=== PATIENT | female | born 1965 | race Two or more races ===

== ENCOUNTER 2020-05-14 12:52 | Outpatient (REF) | payer OTHER, SELFPAY ==
--- NOTE | ~2020-05-14 | MM_ITS ---
EXAMINATION: MM DIAGNOSTIC DIGITAL BREAST TOMOSYNTHESIS, BILATERAL CLINICAL INFORMATION: Due for yearly. Probable benign asymmetric density mid 9:00 right breast for follow-up. The lifetime risk of breast cancer based on the Tyrer-Cuzick Model is 6%. COMPARISON: Mammography: 10/25/2019, 04/26/2019, 04/19/2019 (BI-RADS 0), 04/13/2018, 08/20/2016, 08/22/2014 TECHNIQUE: Digital breast tomosynthesis is performed in both the craniocaudal and mediolateral oblique views along with computer-aided detection (CAD). Synthesized 2D images are generated from the tomosynthesis. FINDINGS: There are scattered areas of fibroglandular density (ACR BI-RADS breast composition Category b). The asymmetric density mid right breast is no longer seen with certainty. There is no developing density or interval mass or architectural abnormality. No abnormal calcifications. The left breast is unremarkable. The bilateral axilla and skin contours are unremarkable. Results are provided to the patient at time of visit by the technologist. Management plan is for diagnostic mammography at next bilateral annual mammography to conclude two-year surveillance. MM/MM tomosynthesis diagnostic BI IMPRESSION: 1. No mammographic evidence of malignancy. 2. No developing density right breast, finding for follow up is less conspicuous and no longer clearly seen. ASSESSMENT: BI-RADS 3: Probably Benign RECOMMENDATION: Diagnostic mammography at time of next annual exam, due in 12 months. This patient's information was entered into a reminder system with a target due date for their next mammogram.
== END 2020-05-14 12:53 | disposition home or self-care (01) ==
LOC: HO.MAMMO 12:52
PROVIDERS: PCP Internal Medicine; Visit Provider Internal Medicine
DX: R92.8 Other abnormal and inconclusive findings on diagnostic imaging of breast (principal)
CPT/HCPCS: 77062; 77066

== ENCOUNTER 2021-05-15 12:31 | Outpatient (REF) | payer OTHER, SELFPAY ==
--- NOTE | ~2021-05-15 | MM_ITS ---
EXAMINATION: MM DIAGNOSTIC DIGITAL MAMMOGRAPHY, BILATERAL CLINICAL INFORMATION: Due for yearly. Also follow-up probable benign asymmetric density mid 9:00 right breast initially noted on screening exam 04/19/2019. The lifetime risk of breast cancer based on the Tyrer-Cuzick Model is 9%. COMPARISON: Mammography: 05/14/2020, 10/25/2019, 04/26/2019, 04/19/2019 (BI-RADS 0, 04/13/2018, 08/20/2016 TECHNIQUE: Digital mammography is performed in craniocaudal and mediolateral oblique views along with computer-aided detection (CAD). FINDINGS: There are scattered areas of fibroglandular density (ACR BI-RADS breast composition Category b). Parenchymal pattern is similar to prior studies. There is no interval mass or developing density or architectural abnormality in either breast. Finding for follow-up right breast is less conspicuous since initial recall and no longer clearly well visualized. There are no abnormal calcifications in either breast. The axilla and skin contours are unremarkable. Results are provided to the patient at time of visit by the technologist. MM/MM diagnostic mammo BI IMPRESSION: No mammographic evidence of malignancy. ASSESSMENT: BI-RADS 2: Benign RECOMMENDATION: Routine annual mammography screening. This patient's information was entered into a reminder system with a target due date for their next mammogram.
== END 2021-05-15 12:32 | disposition home or self-care (01) ==
LOC: HO.MAMMO 12:31
PROVIDERS: PCP Internal Medicine; Visit Provider Internal Medicine
DX: R92.8 Other abnormal and inconclusive findings on diagnostic imaging of breast (principal)
CPT/HCPCS: 77066

== ENCOUNTER 2022-07-02 10:43 | Outpatient (REF) | payer OTHER, SELFPAY ==
--- NOTE | ~2022-07-02 | MM_ITS ---
EXAMINATION: MM SCREENING DIGITAL BREAST TOMOSYNTHESIS, BILATERAL CLINICAL INFORMATION: Screening. Asymptomatic. The lifetime risk of breast cancer based on the Tyrer-Cuzick Model is 8%. COMPARISON: Multiple prior mammography exams, most recent 05/15/2021. TECHNIQUE: Digital breast tomosynthesis is performed in both the craniocaudal and mediolateral oblique views along with computer-aided detection (CAD). Synthesized 2D images are generated from the tomosynthesis. FINDINGS: There are scattered areas of fibroglandular density (ACR BI-RADS breast composition Category b). There are no significant masses, abnormal calcifications, or other abnormalities. No architectural abnormality or developing density or significant change from prior studies. The axilla and skin contours are unremarkable. MM/MM tomosynthesis screening BI IMPRESSION: No mammographic evidence of malignancy. ASSESSMENT: BI-RADS 1: Negative RECOMMENDATION: Routine annual mammography screening. This patient's information was entered into a reminder system with a target due date for their next mammogram.
== END 2022-07-02 10:44 | disposition home or self-care (01) ==
LOC: HO.MAMMO 10:43
PROVIDERS: PCP Internal Medicine; Visit Provider Internal Medicine
DX: Z12.31 Encounter for screening mammogram for malignant neoplasm of breast (principal)
CPT/HCPCS: 77063; 77067

== ENCOUNTER 2023-07-08 10:35 | Outpatient (REF) | payer OTHER, SELFPAY | END 2023-07-08 10:36 | disposition home or self-care (01) | LOC: HO.MAMMO 10:35 | PROVIDERS: PCP Internal Medicine; Visit Provider Internal Medicine | DX: Z12.31 Encounter for screening mammogram for malignant neoplasm of breast (principal) | CPT/HCPCS: 77063; 77067 ==

== ENCOUNTER → 2023-07-08 11:30 | Outpatient (BNV) | payer OTHER, SELFPAY | PROVIDERS: PCP Internal Medicine; Visit Provider Radiology Diagnostic Radiology | DX: Z12.31 Encounter for screening mammogram for malignant neoplasm of breast (principal) | CPT/HCPCS: 77063; 77067 ==

== ENCOUNTER 2024-07-14 10:16 | Outpatient (REF) | payer OTHER, SELFPAY ==
--- OUTSIDE RECORDS SUMMARY | 2024-07-14 11:49 | XMS_ITS | Encounter Summary ---
Author Organization [employer] Address [address] [place] [address] Care Team Providers Care Shuttle Threader Name Role Phone Lor Deshpande MD Primary Care Prov ider Encounter Details Date Type Department Care Team (Late st Contact Info) Description 06/13/2024 Lab Requisition [facility] - Main Lab [address] [facility] [place] [phone] Abby Jacobo MD [address] [place] [address] [phone] Acute upper respiratory infection, unspecified Social History Tobacco Use Types Packs/Day Years Used Date Smoking Tobacco: Former Cigarettes Smokeless Tobacco: Never Alcohol Use Standard Drinks/Week Comments No 0 (1 standard drink = 0.6 oz pur e alcohol) Comments Unknown Sex and Gender Information Value Date Recorded Sex Assigned at Female 05/31/2024 10:46 AM EDT Legal Sex Female 5:41 PM EST Gender Identity Female 05/31/2024 10:46 AM EDT Sexual Orientation Straight 05/31/2024 10 :46 AM EDT documented as of this encounter Functional Status * Are you deaf or do you have serious difficulty hearing? Answer Date of Assessment Author No 06/11/2024 3:16 PM EDT Anat Mckinney RN * Are you blind or do you have serious difficulty seeing, even when wearing glasses? Answer Date of Assessment Author No 06/11/2024 3:16 PM EDT Anat Mckinney RN * Do you have serious difficulty walking or climbing stairs? Answer Date of Assessment Author No 06/11/2024 3:16 PM EDT Anat Mckinney RN * Do you have serious difficulty dressing or bathing? Answer Date of Assessment Author No 06/11/2024 3:16 PM EDT Anat Mckinney RN * Because of a physical, mental, or emotional condition, do you have serious difficulty doing errandsalone such as visiting the doctor? Answer Date of Assessment Author No 06/11/2024 3:16 PM EDT Anat Mckinney RN documented as of this encounter Mental Status * Because of a physical, mental, or emotional condition, do you have serious difficulty concentrating, remembering, or making decisions? (5 years old or older) Answer Entry Date Author No 06/11/2024 3:16 PM EDT Anat Mckinney RN documented in this encounter Plan of Treatment Upcoming Encounters Date Type Department Care Team (Late st Contact Info) Description 08/02/2024 3:00 PM EDT Office Visit Adult Medicine [address] [phone] Lor Deshpande MD [address] [place] [address] 08/08/2024 11:15 AM EDT Office Visit Obstetrics & Gynecology - [facility] [address] [place] [address] Connie Thomas CNM [address] [place] [phone] documented as of this encounter Procedures Procedure Name Priority Date/Time Associated Diagnosis Comments RESPIRATORY VIRUS DETECTION, COMPREHENSIVE Routine 06/13/2024 12:00 AM EDT Acute upper respiratory infection, unspecified CULTURE THROAT Routine 06/13/2024 12:00 AM EDT Acute upper respiratory infection, unspecified documented in this encounter Results * Respiratory virus detection, comprehensive (06/13/2024 12:00 AM EDT) Specimen Source Nasopharyngeal Swab 06/21/2024 2:09 PM EDT [facility] Herpes simplex Type 1 Not detected Not detected 06/21/2024 2:09 PM EDT [facility] Herpes simplex Type 2 Not detected Not detected 06/21/2024 2:09 PM EDT [facility] Cytomegalovirus Not detected Not detected 06/21/2024 2:09 PM EDT [facility] Adenovirus Not detected Not detected 06/21/2024 2:09 PM EDT [facility] Enterovirus Not detected Not detected 06/21/2024 2:09 PM EDT [facility] Influenza A Not detected Not detected 06/21/2024 2:09 PM EDT [facility] Influenza B Not detected Not detected 06/21/2024 2:09 PM EDT [facility] Respiratory Syncytial Virus Not detected Not detected 06/21/2024 2:09 PM EDT [facility] Rhinovirus Not detected Not detected 06/21/2024 2:09 PM EDT [facility] Parainfluenza 1 Not detected Not detected 06/21/2024 2:09 PM EDT [facility] Parainfluenza 2 Not detected Not detected 06/21/2024 2:09 PM EDT [facility] Parainfluenza 3 Not detected Not detected 06/21/2024 2:09 PM EDT [facility] MALISSA-CoV-2 Not detected Not detected 06/21/2024 2:09 PM EDT [facility] Comment: This specimen was tested for multiple viruses by individual PCR reactions. The nucleic acid targets include the glycoprotein G gene of HSV-1, the glycoprotein G/J junction of HSV-2, the CMV DNA polymerase gene, the adenovirus hexon gene, the 5' non-translated region of the enterovirus genome; the matrix gene from influenza A virus, the NS1 gene from influenza B, the HN gene of parainfluenza 1,2, and 3, the RSV RNA polymerase gene, the N1 and N2 genes of SARS-CoV-2, and the 5' untranslated region of rhinovirus. The analytical sensitivity of these assays are 50 copies/mL for HSV-1, HSV-2; 100 copies/mL for influenza A and B and RSV; 150 copies/mL for enterovirus; 200 copies/mL for adenovirus, rhinovirus and parainfluenza 1,2, and 3; 600 copies/mL for CMV and 500 copies/mL for SARS-CoV2. This procedure utilizes multiple real-time polymerase chain reaction amplification and detection tests. A Not detected result does not rule out infection. This test uses commercial reagents that have not been approved or cleared by the FDA. The FDA has determined that such clearance or approval is not necessary. The performance characteristics of this procedure were determined by [facility]. Test performed at [facility], [address] , [place], [place] ??[address] ? [phone] Helen Arriaga MD, PhD - Oyster Washer Swab Nasopharyngeal structure / Unknown 06/13/2024 06/16/2024 2:28 PM EDT Abby Jacobo MD LAB MICROBIOLOGY - GENERA L ORDERABLES Final Result [facility] [address] [place] [address] * Culture throat (06/13/2024 12:00 AM EDT) Culture, Throat No pathogens isolated. 06/15/2024 11:43 AM EDT [facility] Swab Structure of anterior portion of neck / Unknown 06/13/2024 06/13/2024 6:29 PM EDT Abby Jacobo MD LAB MICROBIOLOGY - GENERA L ORDERABLES Final Result [facility] [address] [place] [address], documented in this encounter Visit Diagnoses Diagnosis Acute upper respiratory infection, unspecified documented in this encounter Additional Health Concerns Infection Onset Date Last Indicated Resolved Time Streptococcus Group A 06/11/2024 06/11/2024 Respiratory Rule-Out 06/13/2024 06/13/2024 025 2:09 PM EDT documented as of this encounter Care Teams Shuttle Threader Relationship Specialty Start Date End Date Lor Deshpande MD [address] [place] [id number] PCP - General Internal Medicine 03/11/24 documented as of this encounter
--- OUTSIDE RECORDS SUMMARY | 2024-07-14 11:49 | XMS_ITS | Encounter Summary ---
Author Organization [employer] Address [address] [place] [address] Care Team Providers Care Tableau Analyst Name Role Phone Lor Deshpande MD Primary Care Prov ider Reason for Visit * Reason Comments Menopause Encounter Details Date Type Department Care Team (Latest Contact Info) Description 07/11/2024 9:30 AM EDT Office Visit Obstetrics & Gynecology - [facility] [address] [place] [phone] Connie Thomas CNM [address] [place] [address] Perimenopause (Primary Dx) Social History Tobacco Use Types Packs/Day Years [...] AM EDT documented as of this encounter Last Filed Vital Signs Vital Sign Reading Time Taken Comments Blood Pressure 137/84 07/11/2024 9:40 AM EDT Pulse 63 07/11/2024 9:40 AM EDT Temperature - - Respiratory Rate - - Oxygen Saturation - - Inhaled Oxygen Concentration - - Weight 81.7 kg (180 lb 1.6 oz) 07/11/2024 9:40 A M EDT Height 165.1 cm (5' 5 ) 07/11/2024 9:40 AM EDT Body Mass Index 29.97 07/11/2024 9:40 AM EDT documented in this encounter Functional Status * Are you [...] Anat Mckinney RN documented in this encounter Ordered Prescriptions Prescription Sig Dispense Quantity Refills Last Filled Start Date End Date PARoxetine (PAXIL) 10 mg tablet Take 1 tablet (10 mg total) by mouth 1 (one) time each day in the morning. 30 each 07/11/2024 07/11/2025 documented in this encounter Plan of Treatment Upcoming Encounters Date Type Department Care Team (Late st Contact Info) Description 08/02/2024 3:00 PM EDT Office Visit Adult Medicine [address] [phone] Lor Deshpande MD [address] [place] [address] [place] [address] 08/08/2024 11:15 AM EDT Office Visit Obstetrics & Gynecology - [facility] [address] [place] [phone] Connie Thomas, MINNIEM [address] [place] [phone] documented as of this encounter Visit Diagnoses Diagnosis Perimenopause- Primary Symptomatic menopausal or female climacteric states documented in this encounter Discontinued Medications Medication Sig Discontinue Reason Start Date End Da te FLUoxetine (PROzac) 20 mg capsule TAKE 1 CAPSULE BY MOUTH EVERY DAY FOR DEPRESSION Alternate therapy 04/20/2024 07/11/2024 documented as of this encounter Additional Health Concerns Infection Onset Date Last Indicated Resolved Time Streptococcus Group A 06/11/2024 06/11/2024 documented as of this encounter Care Teams Tableau Analyst Relationship Specialty Start Date End Date Lor Deshpande MD [address] [place] [address] PCP - General Internal Medicine 03/11/24 documented as of this encounter
--- OUTSIDE RECORDS SUMMARY | 2024-07-14 11:49 | XMS_ITS | Encounter Summary ---
Author Organization [employer] [place] [address] Care Team Providers Care Ip Architect Name Role Phone Lor Deshpande MD Primary Care Prov ider Encounter Details Date Type Department Care Team (Late st Contact Info) Description 07/14/2024 Telephone Internal Medicine - [facility] [address] [place] [phone] Carmel Burns RN Social History Tobacco Use Types Packs/Day Years [...] of Assessment Author No 06/11/2024 3:16 PM EDAnat Sharma RN * Do you have serious difficulty dressing or bathing? Answer Date of Assessment Author No 06/11/2024 3:16 PM Anat Murguia RN * Because of a physical, mental, or emotional condition, do you have serious difficulty doing errandsalone such as visiting the doctor? Answer Date of Assessment Author No 06/11/2024 3:16 PM Anat Murguia RN documented as of this encounter Mental Status * Because of a physical, mental, or emotional condition, do you have serious difficulty concentrating, remembering, or making decisions? (5 years old or older) Answer Entry Date Author No 06/11/2024 3:16 PM Anat Murguia RN documented in this encounter Progress Notes * Carmel Burns RN - 07/14/2024 9:32 AM EDT Initial Note Home visit with patient completed on 07/13/24 with RN and CWA, present, discussed patient???s goals.Patient identified top goals as assistance with, assistance with food resources, assistance with PT1 application for rides to medical appointments, assistance with chronic disease education for dx PILO, Osteoarthritis left knee, htn, depressive disorder, medication review and compliance, care coordination, compliance with follow up appointments, education, support and patient management of depressive symptoms. RN completed med reconciliation and uploaded in [employer] Relevant Past Medical History (including dates): 09/11/21 hand surgery; 04/12/21 nasal endoscopy septum removal. Relevant Past Medication History (including dates: robaxin 500 mg p.o. 2xdaily 05/31/24 to 06/10/24; naproxen 500 mg p.o. 2xdaily 05/31/24 to 06/15/24. Member Self-management Plan (including documentation that the member agrees to the plan): RN reviewed POC with the patient, patient agrees to POC: Food Resources: Patient is requesting assistance with food resources. Transportation: Patient is requesting assistance with PT1 application for rides to medical appointments. Medical: Patient needs assistance with assistance with chronic disease education for dx PILO, Osteoarthritis left knee, htn, depressive disorder, medication review and compliance, care coordination, compliance with follow up appointments. Depression: Patient reported experiencing symptoms related to depression. Patient refused referral for a Therapist, is connected with her Gunite Nozzle Operator at [facility] for support. RN to assist with BH education,support, and patient management of BH. documented in this encounter Plan of Treatment Upcoming Encounters Date Type Department Care Team (Late st Contact Info) Description 08/02/2024 3:00 PM EDT Office Visit Adult Medicine [facility] [address] [place] [phone] Lor Deshpande MD [address] [place] [address] 08/08/2024 11:15 AM EDT Office Visit Obstetrics & Gynecology - [facility] [address] [place] [phone] Connie Thomas, DAMARI [address] [place] [phone] documented as of this encounter Visit Diagnoses Not on filedocumented in this encounter Additional Health Concerns Infection Onset Date Last Indicated Resolved Time Streptococcus Group A 06/11/2024 06/11/2024 documented as of this encounter Care Teams Ip Architect Relationship Specialty Start Date End Date Lor Deshpande MD [address] [place] [id number] PCP - General Internal Medicine 03/11/24 documented as of this encounter
--- OUTSIDE RECORDS SUMMARY | 2024-07-14 11:49 | XMS_ITS | Clinical Summary ---
Author Organization [facility] [address] [place] [address] [place] [phone] Phone Care Team Providers Care Vice President Safety Name Role Phone Lor Deshpande MD Primary Care Prov ider Allergies Active Allergy Reactions Criticality Noted Date Comments Other 07/20/2013 seasonal Medications diclofenac (VOLTAREN) 1 % topical gel Apply 1 Application topically 1 (one) time each day. 10/17/19 23 Active emtricitabine-r ilpivirine-teno fovir alafenamide (Odefsey) 200-25-25 mg per tablet Take 1 tablet by mouth 1 (one) time each day. Active ergocalciferol (VITAMIN D-2) 1,250 mcg (50,000 unit) capsule Take 1 capsule (50,000 Units total) by mouth 1 (one) time per week. 02/14/20 23 Active acetaminophen (TYLENOL) 500 mg tablet Take 1 Tablet by mouth every 6 hours as needed for Pain 30 tablet 5 03/11/20 24 Active famotidine (PEPCID) 40 mg tablet Take 1 tablet (40 mg total) by mouth 1 (one) time each day. 90 tablet 1 03/11/20 24 Active fluticasone propionate (FLONASE) 50 mcg/actuation nasal spray 1 spray per nostril twice per day, as needed for nasal congestion 16 g 5 03/11/20 24 Active lisinopriL (PRINIVIL,ZESTR IL) 10 mg tablet Take 1 tablet (10 mg total) by mouth 1 (one) time each day. 90 tablet 1 03/11/20 24 Active meclizine (ANTIVERT) 25 mg tablet Take 1 tablet (25 mg total) by mouth 3 (three) times a day if needed for dizziness. 30 tablet 5 03/11/20 24 Active melatonin 5 mg tablet Take 1 tablet (5 mg total) by mouth at bedtime as needed for sleep. 30 tablet 5 03/11/20 24 Active triamcinolone (KENALOG) 0.025 % cream APPLY SPARINGLY TO AFFECTED AREA TWICE DAILY 30 g 2 03/11/20 24 Active cholecalciferol (Vitamin D3) 50 mcg (2,000 unit) capsule Take 1 capsule (2,000 Units total) by mouth 1 (one) time each day. 90 capsule 1 03/11/20 24 Active gabapentin (NEURONTIN) 300 mg capsule Take 1 capsule (300 mg total) by mouth at bedtime. 30 each 5 03/11/20 24 Active methocarbamoL (ROBAXIN) 500 mg tablet Take 1 tablet (500 mg total) by mouth 2 (two) times a day for 10 days. 20 tablet 06/01/19 25 Active Ventolin HFA 90 mcg/actuation inhaler TAKE 2 PUFFS BY MOUTH EVERY 6 TO 8 HOURS FOR WHEEZING 06/05/19 25 Active Banophen 25 mg capsule Take 2 capsules (50 mg total) by mouth. at bedtime 05/24/19 25 Active multivitamin tablet Take 1 tablet by mouth 1 (one) time each day. 03/26/19 25 Active PARoxetine (PAXIL) 10 mg tablet Take 1 tablet (10 mg total) by mouth 1 (one) time each day in the morning. 30 each 07/12/19 25 026 Active naproxen (NAPROSYN) 500 mg tablet Take 1 tablet (500 mg total) by mouth 2 (two) times a day with meals for 15 days. 30 tablet 06/01/19 25 025 amoxicillin-cla vulanate (AUGMENTIN) 875-125 mg per tablet Take 1 tablet by mouth every 12 (twelve) hours for 10 days. 20 each 06/12/19 25 025 FLUoxetine (PROzac) 20 mg capsule TAKE 1 CAPSULE BY MOUTH EVERY DAY FOR DEPRESSION 04/20/19 25 025 Discontinu ed(Alterna te therapy) Active Problems Problem Noted Date Diagnosed Date PILO (obstructive sleep apnea) 02/29/2024 Premature atrial contractions 01/07/2023 Mild scoliosis 10/13/2022 Left carpal tunnel syndrome 01/01/2022 Neck pain 2021 Trigger ring finger of left hand 09/11/2021 Palpitations 05/07/2021 Pulmonary nodule 04/12/2021 Primary osteoarthritis of left knee 12/25/2020 Mild concentric left ventricular hypertrophy 06/2020 Hyperlipidemia 12/20/2019 Recurrent major depressive d isorder, in remission ([facility] V24) 04/27/2018 Alopecia areata 03/18/2018 Overview (02/29/2024): Alopecia areata Obesity (BMI 30.0-34.9) 02/18/2016 Bilateral low back pain without sciatica 015 HTN (hypertension) 05/18/2014 Bilateral carpal tunnel syndrome 03/29/2014 Overview (02/29/2024): EMG/NCV Dr. 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 Jacobo Encounters Date Type Department Care Team Description 07/14/2024 Telephone Internal Medicine - [facility] [address] [place] [address] Carmel Burns RN 07/11/2024 9:30 AM EDT Office Visit Obstetrics & Gynecology - [facility] [address] [place] [address] Connie Thomas CNM Perimenopause (Primary Dx) 06/13/[address] [facility] - Main Lab [address] [place] [phone] Abby Jacobo MD Acute upper respiratory infection, unspecified 06/11/2024 11:56 AM EDT - 06/11/2024 4:23 PM EDT Emergency [facility] [address] [place] [address] Strep pharyngitis (Primary Dx) Discharge Disposition: Home or Self Care 05/31/2024 10:44 AM EDT - 05/31/2024 12:32 PM EDT [facility] [address] [place] [address] Acute bilateral low back pain without sciatica (Primary Dx) Discharge Disposition: Home or Self Care 05/31/2024 Telephone Adult Medicine [address] [id number] [place] [phone] Lor Deshpande MD Back Pain from Last 3 Months Immunizations Name Administration Dates Next Due Influenza Quadravalent, MDCK , 0.5ml, preservative free (Flucelvax) 6mo and older 11/27/2022 Influenza trivalent, 0.5mL, preservative free (Fluarix; FluLaval; Fluzone) ages 6mo and older (Afluria) 3 years and older 11/11/2021,12/05/2020,12/26/2015 Influenza, Unspecified 12/17/2022,12/05/2020 Meningococcal B, Recombinant (Bexsero) 16yo to less than 24yo 04/04/2021 [employer]r Covid-19 Bivalent, Or iginal + Ba.1 (Non-US Trademark COMIRNATY Bivalent) 02/11/2022 [employer] SARS-CoV-2 COVID-19, mRNA, LNP-S, preservative free 12/31/2020,06/26/2020,06/05/2020 Pneumococcal polysaccharide 23 valent (Pneumovax 23) 2yo and older 09/27/2021 Pneumococcal, Unspecified 04/24/2011 Tdap Tetanus diptheria acell ular pertussis (Boostrix; Adacel) 7yo and older 10/08/2023,06/22/2013 Zoster recombinant (Shingrix ) 19yo and older 04/04/2021,12/05/2020 Surgical History Surgery Date Site/Laterality Comments HAND SURGERY Right PROCEDURE: HISTORICAL HAND SURGERY; COMMENT: removal of cyst on wrist and long trigger finger release OTHER SURGICAL HISTORY PROCEDURE: NASAL ENDOSCOPY, SURGICAL; COMMENT: septum removal SECTION PROCEDURE: HISTORICAL ; COMMENT: x3 Medical History Medical History Date Comments Unspecified essential hypertension DX:Unspecified essential hypertension Esophageal reflux DX:Esophageal reflux PILO (obstructive sleep apnea) DX :PILO (obstructive sleep apnea) HIV (human immunodeficiency virus infection) ([facility] V24, [facility] V28) 1999 DX:HIV (human im munodeficiency virus infection) ([facility]) Alopecia areata DX:Alopecia area ta Hyperlipidemia DX:Hyperlipidemi a Mild scoliosis 10/13/2022 DX:Mild scoliosi s Family History Medical History Relation Name Comments Glaucoma Maternal Grandfather Other: Other Maternal Grandfather eye ble ed Glaucoma Mother Other: AIDS, lymphoma Son Blindness Neg Hx Breast cancer Neg Hx Cataracts Neg Hx Colon cancer Neg Hx Macular degeneration Neg Hx Ovarian cancer Neg Hx Prostate cancer Neg Hx Strabismus Neg Hx Relation Name Status Comments Father of inopera ble embolic clot to brain Maternal Grandfather Mother Alive glaucoma, htn, hyperlipid, arthritis Son Social History Tobacco Use Types Packs/Day Years [...] Orientation Straight 05/31/2024 10 :46 AM EDT Obstetrics History Para Term AB IAB SAB Ectopic Multiple Livin g Live Births 3 3 3 Date Outcome GA Total Labor Labor/2nd/3rd Weight Sex Type Anes PTL Kenisha A1 A5 Name Clin 1985 M CS-Un spec Living 1986 M CS-Un spec Living 1988 F CS-Un spec Living Last Filed Vital Signs Vital Sign Reading Time Taken Comments Blood Pressure 137/84 07/11/2024 9:40 AM EDT Pulse 63 07/11/2024 9:40 AM EDT Temperature 36.7 ??C (98.1 ??F) 06/11/2024 3:19 PM ED T Respiratory Rate 16 06/11/2024 3:19 PM EDT Oxygen Saturation 100% 06/11/2024 3:19 PM EDT Inhaled Oxygen Concentration - - Weight 81.7 kg (180 lb 1.6 oz) 07/11/2024 9:40 A M EDT Height 165.1 cm (5' 5 ) 07/11/2024 9:40 AM EDT Body Mass Index 29.97 07/11/2024 9:40 AM EDT Plan of Treatment Upcoming Encounters Date Type Department Care Team (Late st Contact Info) Description 08/02/2024 3:00 PM EDT Office Visit Adult Medicine [address] [phone] Lor Deshpande MD [address] [place], [place] 08/08/2024 11:15 AM EDT Office Visit Obstetrics & Gynecology - [facility] [address] [place] [address] Connie Thomas, DAMARI [address] [place] [address] Health Maintenance Due Date Last Done Comments Breast Cancer Screening 1965 Meningococcal ACWY Vaccine (1 - Risk 2-dose series) 11/14/1969 MMR Vaccines (1 of 2 - Risk 2-dose series) 11/14/1985 Hepatitis A Vaccines (1 of 2 - Risk 2-dose series) 11/14/1986 Hepatitis B Vaccines (1 of 3 - 19+ 3-dose series) 11/14/1986 Social Influencers of Health Screening 03/01/2022 Pneumococcal Vaccine: 50+ Years (2 of 2 - PCV) 09/27/2022 09/27/2021, 04/24/2011 Pneumococcal Vaccine: Pediatrics (0 to 5 Years) and At-Risk Patients (6 to 64 Years) (2 of 2 - PCV) 09/27/2022 09/27/2021, 04/24/2011 COVID-19 Vaccine ( season) 2023 12/31/2020, 06/26/2020, 06/05/2020 Influenza Vaccine (Season Ended) 2024 12/17/2022, 11/27/2022, 11/11/2021, Additional history exists Depression Screening 11/27/2024 11/28/2023 Cervical Cancer Screening: HPV 04/09/2025 04/09/2020 Hypertension/CHF/CAD Annual BMP Blood Test 06/11/2025 06/11/2024, 03/11/2024, 06/09/2022 Cholesterol Screening (Lipid Panel) 06/10/2027 06/09/2022 Colorectal Cancer Screening: Colonoscopy 05/02/2030 05/02/2020 DTaP,Tdap,and Td Vaccines (3 - Td or Tdap) 10/07/2033 10/08/2023, 06/22/2013 Hepatitis C Screening Completed 02/24/2018 Meningococcal B Vaccine Aged Out 04/04/2021 No l onger eligible based on patient's age to complete this topic Zoster Vaccines Completed 04/04/2021, 12/05/2020 HIB Vaccines Aged Out No longer eligi ble based on patient's age to complete this topic HPV Vaccines Aged Out No longer eligi ble based on patient's age to complete this topic IPV Vaccines Aged Out No longer eligi ble based on patient's age to complete this topic RSV Immunization Patients Under 20 months Aged Out No longer eligible based on patient's age to complete this topic Varicella Vaccines Aged Out No longer eligible based on patient's age to complete this topic Procedures Procedure Name Priority Date/Time Associated Diagnosis Comments RESPIRATORY VIRUS DETECTION, COMPREHENSIVE Routine 06/13/2024 12:00 AM EDT Acute upper respiratory infection, unspecified CULTURE THROAT Routine 06/13/2024 12:00 AM EDT Acute upper respiratory infection, unspecified SIMMONS URINE CULTURE TUBE STAT 06/11/2024 2:23 PM EDT URINALYSIS WITH REFLEX MICROSCOPIC AND CULTURE STAT 06/11/2024 2:23 PM EDT URINALYSIS WITH REFLEX MICROSCOPIC AND CULTURE STAT 06/11/2024 2:23 PM EDT RAPID STREP A SCREEN STAT 06/11/2024 2:20 PM EDT XR CHEST 2 VIEWS STAT 06/11/2024 12:5 0 PM EDT CBC WITH AUTO DIFFERENTIAL STAT 06/11/2024 11:24 AM EDT COMPREHENSIVE METABOLIC PANEL STAT 06/11/2024 11:24 AM EDT CBC AND DIFFERENTIAL STAT 06/11/2024 11:24 AM EDT RESPIRATORY VIRUS PANEL MOLECULAR STUDY STAT 06/11/2024 10:49 AM EDT XR LUMBAR SPINE 2-3 VIEWS STAT 05/31/2024 11:57 AM EDT XR THORACIC SPINE 2 VIEWS STAT 05/31/2024 11:57 AM EDT CULTURE THROAT STAT 05/31/2024 11:11 AM EDT RAPID STREP A SCREEN STAT 05/31/2024 11:11 AM EDT RBAC-[id number], RSV, FLU A AND B QUALITATIVE RT-PCR, INTERNAL LAB STAT 05/31/2024 11:03 AM EDT HM DEPRESSION SCREENING Routine 11/28/2023 LIPID PANEL Routine 06/09/2022 HM COLONOSCOPY Routine 05/02/2020 HM HPV Routine 04/09/2020 HM HEPATITIS C SCREENING Routine 02/24/2018 from Last 3 Months or Most Recently Relevant to Health Maintenance Results * Respiratory virus detection, comprehensive (06/13/2024 [...] characteristics of this procedure were determined by [facility]. Test performed at [facility], [address] , [place], [place] ??[address] ? [phone] Helen Arriaga MD, PhD - [employer] Swab Nasopharyngeal structure / Unknown 06/13/2024 06/16/2024 2:28 PM EDT Abby Jacobo MD LAB MICROBIOLOGY - GENERA L ORDERABLES Final Result Performing Organization Address City/[facility]/ZIP Co de Phone Number [facility] [address] [place] [address] * Culture throat (06/13/2024 12:00 AM EDT) Only the most recent of2 resultswithin the time period is included. [facility] Culture, Throat No pathogens isolated. 06/15/2024 11:43 AM EDT [facility] Swab Structure of anterior portion of neck / Unknown 06/13/2024 06/13/2024 6:29 PM EDT us Abby Jacobo MD LAB MICROBIOLOGY - GENERA L ORDERABLES Final Result [facility] [address] [place] [address], [place] [phone] * (ABNORMAL) Urinalysis with reflex microscopic and culture (06/11/2024 2:23 PM EDT) Pathologist [facility] Specific [place] Urine 1.027 1.003 - 1.030 LAB URINALYSIS - AUTOMATED METHOD 06/11/2024 4:00 PM [facility] pH, Urine 6.0 5.0 - 8.0 pH LAB URINALYSIS - AUTOMATED METHOD 06/11/2024 4:00 PM [facility] Leukocytes, Urine Negative Negative LAB URINALYSIS - AUTOMATED METHOD 06/11/2024 4:00 PM [facility] Nitrite, Urine Negative Negative LAB URINALYSIS - AUTOMATED METHOD 06/11/2024 4:00 PM [facility] Protein, Urine 30(A) <=Trace mg/dL LAB URINALYSIS - AUTOMATED METHOD 06/11/2024 4:00 PM [facility] Glucose, Urine Negative Negative mg/dL LAB URINALYSIS - AUTOMATED METHOD 06/11/2024 4:00 PM [facility] Ketones, Urine Trace(A) Negative mg/dL LAB URINALYSIS - AUTOMATED METHOD 06/11/2024 4:00 PM [facility] Urobilinogen, Urine 1.0 0.2 - 1.0 mg/dL LAB URINALYSIS - AUTOMATED METHOD 06/11/2024 4:00 PM [facility] Bilirubin, Urine Negative Negative LAB URINALYSIS - AUTOMATED METHOD 06/11/2024 4:00 PM [facility] Blood, Urine Trace(A) Negative LAB URINALYSIS - AUTOMATED METHOD 06/11/2024 4:00 PM [facility] RBC, Urine 14.9(H) 0 - 4 /HPF LAB URINALYSIS - AUTOMATED METHOD 06/11/2024 4:00 PM [facility] WBC, Urine 0.9 0 - 4 /HPF LAB URINALYSIS - AUTOMATED METHOD 06/11/2024 4:00 PM [facility] Squamous Epithelial, Urine 22 0 - 60 /LPF LAB URINALYSIS - AUTOMATED METHOD 06/11/2024 4:00 PM EDT [facility] Bacteria, Urine Negative Negative /HPF LAB URINALYSIS - AUTOMATED METHOD 06/11/2024 4:00 PM EDT [facility] Hyaline Casts, Urine 0.0 0 - 3 /LPF LAB URINALYSIS - AUTOMATED METHOD 06/11/2024 4:00 PM EDT [facility] Urine Urine specimen obtained by clean catch procedure / Unknown Non-blood Collection / Unknown 06/11/2024 2:23 PM EDT 06/11/2024 3:[address] [facility] URINE ORDERABLES Final Resul t Performing Organization Address City/[facility]/ZIP Co de Phone Number [facility] [address] [place] [address], [place] [phone] * Simmons urine culture tube (06/11/2024 2:23 PM EDT) Extra Tube Hold for add-ons. 06/11/2024 5:01 PM EDT [facility] Comment:Auto resulted. Urine Urine specimen obtained by clean catch procedure / Unknown Non-blood Collection / Unknown 06/11/2024 2:23 PM EDT 06/11/2024 3:[address] [facility] URINE ORDERABLES Final Resul t [facility] [address] [place] [address], [place] [phone] * (ABNORMAL) Rapid strep A screen (06/11/2024 2:20 PM EDT) Only the most recent of2 resultswithin the time period is included. Strep A Ag Positive(A ) Negative, Invalid 06/11/2024 3:44 PM EDT [facility] Swab Structure of anterior portion of neck / Unknown Non-blood Collection / Unknown 06/11/2024 2:20 PM EDT 06/11/2024 3:30 PM EDT Flora [facility] LAB MICROBIOLOGY - GENERAL ORDER ODALIS Final Result [facility] [address] [place] [address], [place] [phone] * XR Chest 2 Views (06/11/2024 12:50 PM EDT) Anatomical Region Laterality Modality Body Radiographic Kary ging 06/11/2024 12:5 6 PM EDT Impressions 06/11/2024 12:56 PM EDT Impression: Stable radiographic appearance of the chest. No active pulmonary process identified. Telerehana DOUGHERTY ([id number]) -------- FINAL REPORT -------- Dictated By: Valeria Vazquez Dictated Date: 06/11/2024 12:56 ET Assigned Physician: Valeria Vazquez Reviewed and Electronically Signed By: Valeria Vazquez Signed Date: 06/11/2024 12:56 ET Workstation ID: [id number] Transcribed By: Self Edit Transcribed Date: 06/11/2024 12:56 ET Narrative 06/11/2024 12:56 PM EDT History: Dyspnea, chronic. Comparison: 06/06/2023 Findings: PA and lateral views. The cardiac silhouette remains normal in size. Hilar contours and pulmonary vascularity are within normal limits. The lungs are clear. The costophrenic angles are sharp. A mild dextroscoliosis is centered in the lower thoracic spine, unchanged. Procedure Note Valeria Vazquez MD - 06/11/2024 History: Dyspnea, chronic. Comparison: 06/06/2023 Findings: PA and lateral views. The cardiac silhouette remains normal in size. Hilarcontours and pulmonary vascularity are within normal limits. The lungs areclear. The costophrenic angles are sharp. A mild dextroscoliosis is centered in the lower thoracic spine,unchanged. IMPRESSION: Impression: Stable radiographic appearance of the chest. No active pulmonary processidentified. T[place] ([id number]) -------- FINAL REPORT -------- Dictated By: Valeria Vazquez Dictated Date: 06/11/2024 12:56 ET Assigned Physician: Valeria Vazquez Reviewed and Electronically Signed By: Valeria Vazquez Signed Date: 06/11/2024 12:56 ET Workstation ID: [id number] Transcribed By: Self Edit Transcribed Date: 06/11/2024 12:56 ET Hebert Vega DO IMG XR PROCEDURES Final Result * (ABNORMAL) CBC auto differential (06/11/2024 11:24 AM EDT) WBC 17.5(H) 4.8 - 10.8 K/mcL LAB HEMETOLOGY METHOD 06/11/2024 12:47 PM EDT [facility] RBC 4.20 3.80 - 4.80 M/mcL LAB HEMETOLOGY METHOD 06/11/2024 12:47 PM EDT [facility] Hemoglobin 12.7 11.5 - 16.0 g/dL LAB HEMETOLOGY METHOD 06/11/2024 12:47 PM EDT [facility] Hematocrit 37.9 35.0 - 47.0 % LAB HEMETOLOGY METHOD 06/11/2024 12:47 PM EDT [facility] MCV 90.2 79.0 - 98.0 FL LAB HEMETOLOGY METHOD 06/11/2024 12:47 PM EDT [facility] MCH 30.2 27.0 - 32.0 pcg LAB HEMETOLOGY METHOD 06/11/2024 12:47 PM EDT [facility] MCHC 33.5 32.0 - 37.0 g/dL LAB HEMETOLOGY METHOD 06/11/2024 12:47 PM EDT [facility] RDW 11.7 11.0 - 15.0 % LAB HEMETOLOGY METHOD 06/11/2024 12:47 PM EDT [facility] Platelets 292 130 - 400 K/mcL LAB HEMETOLOGY METHOD 06/11/2024 12:47 PM [facility] MPV 12.1(H) 7.0 - 11.0 FL LAB HEMETOLOGY METHOD 06/11/2024 12:47 PM [facility] NRBC 0.0 <1.0 % LAB HEMETOLOGY METHOD 06/11/2024 12:47 PM [facility] NRBC Absolute 0.00 <0.10 K/mcL LAB HEMETOLOGY METHOD 06/11/2024 12:47 PM [facility] Neutrophils Relative 70.4 % LAB HEMETOLOGY METHOD 06/11/2024 12:47 PM [facility] Comment:This is an appended report. These results have been appended to a previously preliminary verified report. Lymphocytes Relative 17.8 % LAB HEMETOLOGY METHOD 06/11/2024 12:47 PM [facility] Comment:This is an appended report. These results have been appended to a previously preliminary verified report. Monocytes Relative 9.6 % LAB HEMETOLOGY METHOD 06/11/2024 12:47 PM [facility] Comment:This is an appended report. These results have been appended to a previously preliminary verified report. Eosinophils Relative 1.1 % LAB HEMETOLOGY METHOD 06/11/2024 12:47 PM T [facility] Comment:This is an appended report. These results have been appended to a previously preliminary verified report. Basophils Relative 0.5 % LAB HEMETOLOGY METHOD 06/11/2024 12:47 PM [facility] Comment:This is an appended report. These results have been appended to a previously preliminary verified report. Immature Granulocytes Relative 0.6 % LAB HEMETOLOGY METHOD 06/11/2024 12:47 PM [facility] Comment:This is an appended report. These results have been appended to a previously preliminary verified report. Neutrophils Absolute 12.31(H) 1.50 - 7.00 K/mcL LAB HEMETOLOGY METHOD 06/11/2024 12:47 PM T [facility] Comment:This is an appended report. These results have been appended to a previously preliminary verified report. Lymphocytes Absolute 3.12 1.00 - 5.00 K/mcL LAB HEMETOLOGY METHOD 06/11/2024 12:47 PM T [facility] Comment:This is an appended report. These results have been appended to a previously preliminary verified report. Monocytes Absolute 1.68(H) 0.20 - 1.00 K/mcL LAB HEMETOLOGY METHOD 06/11/2024 12:47 PM [facility] Comment:This is an appended report. These results have been appended to a previously preliminary verified report. Eosinophils Absolute 0.20 0.00 - 0.50 K/mcL LAB HEMETOLOGY METHOD 06/11/2024 12:47 PM [facility] Comment:This is an appended report. These results have been appended to a previously preliminary verified report. Basophils Absolute 0.08 0.00 - 0.20 K/mcL LAB HEMETOLOGY METHOD 06/11/2024 12:47 PM T [facility] Comment:This is an appended report. These results have been appended to a previously preliminary verified report. Immature Granulocytes Absolute 0.10(H) 0.00 - 0.03 K/mcL LAB HEMETOLOGY METHOD 06/11/2024 12:47 PM T [facility] Comment:This is an appended report. These results have been appended to a previously preliminary verified report. Blood Venous blood specimen / Unknown Venipuncture / Unknown 06/11/2024 11:24 AM EDT 06/11/2024 12:15 PM EDT us Hebert Vega DO LAB BLOOD ORDERABLES Final Res ult [facility] [address] [place] [address], * Comprehensive metabolic panel (06/11/2024 11:24 AM EDT) Sodium 143 133 - 145 mmol/L LAB CHEMISTRY METHOD 06/11/2024 12:44 PM EDT [facility] Potassium 4.3 3.5 - 5.5 mmol/L LAB CHEMISTRY METHOD 06/11/2024 12:44 PM [facility] Chloride 108 96 - 110 mmol/L LAB CHEMISTRY METHOD 06/11/2024 12:44 PM [facility] CO2 28 21 - 32 mmol/L LAB CHEMISTRY METHOD 06/11/2024 12:44 PM [facility] Anion Gap 7 3 - 11 LAB CHEMISTRY METHOD 06/11/2024 12:44 PM [facility] Glucose 92 70 - 100 mg/dL LAB CHEMISTRY METHOD 06/11/2024 12:44 PM [facility] BUN 17 5 - 25 mg/dL LAB CHEMISTRY METHOD 06/11/2024 12:44 PM [facility] Creatinine 0.72 0.50 - 1.10 mg/dL LAB CHEMISTRY METHOD 06/11/2024 12:44 PM [facility] eGFR 98 >=60 mL/min/1. 73m2 LAB CHEMISTRY METHOD 06/11/2024 12:44 PM [facility] Comment:Calculation based on the??Chronic Kidney Disease Epidemiology Collaboration (CKD-EPI) equation refit??without adjustment for race. BUN/Creatinine Ratio 23.6 LAB CHEMISTRY METHOD 06/11/2024 12:44 PM [facility] Calcium 9.7 8.5 - 10.5 mg/dL LAB CHEMISTRY METHOD 06/11/2024 12:44 PM [facility] AST (SGOT) 20 10 - 42 unit/L LAB CHEMISTRY METHOD 06/11/2024 12:44 PM EDT [facility] ALT (SGPT) 24 10 - 60 unit/L LAB CHEMISTRY METHOD 06/11/2024 12:44 PM EDT [facility] [facility] Alkaline Phosphatase 103 42 - 121 unit/L LAB CHEMISTRY METHOD 06/11/2024 12:44 PM EDT [facility] Total Protein 7.0 6.0 - 8.0 g/dL LAB CHEMISTRY METHOD 06/11/2024 12:44 PM EDT [facility] Albumin 3.6 3.2 - 5.0 g/dL LAB CHEMISTRY METHOD 06/11/2024 12:44 PM EDT [facility] Total Bilirubin 0.5 0.0 - 1.4 mg/dL LAB CHEMISTRY METHOD 06/11/2024 12:44 PM EDT [facility] Blood Venous blood specimen / Unknown Venipuncture / Unknown 06/11/2024 11:24 AM EDT 06/11/2024 12:15 PM EDT us Hebert Vega DO LAB BLOOD ORDERABLES Final Res ult [facility] [address] [place] [address], * Respiratory virus panel molecular study (06/11/2024 10:49 AM EDT) Adenovirus Detection by PCR Not Detected Not Detected LAB MICROBIOLOGY METHOD 06/11/2024 1:21 PM EDT [facility] Influenza A PCR Not Detected Not Detected LAB MICROBIOLOGY METHOD 06/11/2024 1:21 PM EDT [facility] Influenza B PCR Not Detected Not Detected LAB MICROBIOLOGY METHOD 06/11/2024 1:21 PM EDT [facility] Coronavirus 229E Not Detected Not Detected LAB MICROBIOLOGY METHOD 06/11/2024 1:21 PM EDT [facility] Coronavirus HKU1 Not Detected Not Detected LAB MICROBIOLOGY METHOD 06/11/2024 1:21 PM EDT [facility] Coronavirus OC43 Not Detected Not Detected LAB MICROBIOLOGY METHOD 06/11/2024 1:21 PM EDT [facility] Coronavirus NL63 Not Detected Not Detected LAB MICROBIOLOGY METHOD 06/11/2024 1:21 PM EDT [facility] Parainfluenza Virus 1 Not Detected Not Detected LAB MICROBIOLOGY METHOD 06/11/2024 1:21 PM EDT [facility] Parainfluenza Virus 2 Not Detected Not Detected LAB MICROBIOLOGY METHOD 06/11/2024 1:21 PM EDT [facility] Parainfluenza Virus 3 Not Detected Not Detected LAB MICROBIOLOGY METHOD 06/11/2024 1:21 PM EDT [facility] Parainfluenza Virus 4 Not Detected Not Detected LAB MICROBIOLOGY METHOD 06/11/2024 1:21 PM EDT [facility] RSV PCR Not Detected Not Detected LAB MICROBIOLOGY METHOD 06/11/2024 1:21 PM EDT [facility] Human Metapneumovirus A and B Not Detected Not Detected LAB MICROBIOLOGY METHOD 06/11/2024 1:21 PM EDT [facility] Rhinovirus/Entero virus Not Detected Not Detected LAB MICROBIOLOGY METHOD 06/11/2024 1:21 PM EDT [facility] Bordetella pertussis Not Detected Not Detected LAB MICROBIOLOGY METHOD 06/11/2024 1:21 PM EDT [facility] Bordetella parapertussis Not Detected Not Detected LAB MICROBIOLOGY METHOD 06/11/2024 1:21 PM EDT [facility] Mycoplasma pneumo by PCR Not Detected Not Detected LAB MICROBIOLOGY METHOD 06/11/2024 1:21 PM EDT [facility] Chlamydia pneumoniae Not Detected Not Detected LAB MICROBIOLOGY METHOD 06/11/2024 1:21 PM EDT [facility] SARS COV-2 Not Detected Not Detected LAB MICROBIOLOGY METHOD 06/11/2024 1:21 PM EDT [facility] Sputum Both anterior nares / Unknown Non-blood Collection / Unknown 06/11/2024 10:49 AM EDT 06/11/2024 11:16 AM EDT Narrative [facility] - 06/11/2024 1:21 PM EDT Testing was performed using the [employer] Respiratory Pathogen PCR Assay. All results must be correlated with the clinical findings. Results should not be used as the sole basis for diagnosis. False Negative results may occur from the presence of sequence variants in the region targeted by the assay or the presence of inhibitors. Results may be affected by concurrent antiviral/antimicrobial therapy or levels of organisms that are below the limit of detection. us Hebert Vega DO LAB MICROBIOLOGY - GENERAL ORD ERABLES Final Result [facility] [address] [place] [address], [place] [phone] * XR Lumbar Spine 2-3 Views (05/31/2024 11:57 AM EDT) Anatomical Region Laterality Modality Spine, L-spine Radiographic Kary ging 05/31/2024 12:0 6 PM EDT Impressions 05/31/2024 12:07 PM EDT Degenerative changes of the lumbar spine. -------- FINAL REPORT -------- Dictated By: Teddy Fernández Dictated Date: 05/31/2024 12:06 ET Assigned Physician: Teddy Fernández Reviewed and Electronically Signed By: Teddy Fernández Signed Date: 05/31/2024 12:07 ET Workstation ID: [id number] Transcribed By: Self Edit Transcribed Date: 05/31/2024 12:06 ET Narrative 05/31/2024 12:07 PM EDT PROCEDURE: Radiographs of the lumbar spine. HISTORY: pain. COMPARISON: None. FINDINGS: There is a slight lower lumbar levocurvature. ??No focal bony lesion. ??No compression deformity. ??Mild degenerative irregularity and osteophytosis affecting the vertebral endplates. ??Moderate lower lumbar facet arthropathy. ??Atherosclerotic calcifications of the aorta. Procedure Note Teddy Fernández MD - 05/31/2024 PROCEDURE: Radiographs of the lumbar spine. HISTORY: pain. COMPARISON: None. FINDINGS: There is a slight lower lumbar levocurvature. No focal bony lesion. Nocompression deformity. Mild degenerative irregularity and osteophytosisaffecting the vertebral endplates. Moderate lower lumbar facetarthropathy. Atherosclerotic calcifications of the aorta. IMPRESSION: Degenerative changes of the lumbar spine. -------- FINAL REPORT -------- Dictated By: Teddy Fernández Dictated Date: 05/31/2024 12:06 ET Assigned Physician: Teddy Fernández Reviewed and Electronically Signed By: Teddy Fernández Signed Date: 05/31/2024 12:07 ET Workstation ID: [id number] Transcribed By: Self Edit Transcribed Date: 05/31/2024 12:06 ET Lesa DOUGHERTY IMG XR PROCEDURES Final Resul t * XR Thoracic Spine 2 Views (05/31/2024 11:57 AM EDT) Anatomical Region Laterality Modality Spine, T-spine Radiographic Kary ging 05/31/2024 12:0 7 PM EDT Impressions 05/31/2024 12:07 PM EDT Slight S-shaped curvature of the thoracic spine with mild endplate degenerative changes. -------- FINAL REPORT -------- Dictated By: Teddy Fernández Dictated Date: 05/31/2024 12:07 ET Assigned Physician: Teddy Fernández Reviewed and Electronically Signed By: Teddy Fernández Signed Date: 05/31/2024 12:07 ET Workstation ID: [id number] Transcribed By: Self Edit Transcribed Date: 05/31/2024 12:07 ET Narrative 05/31/2024 12:07 PM EDT Procedure: Radiographs of the thoracic spine. HISTORY: pain. COMPARISON: None. FINDINGS: Normal alignment. ??No compression deformity. ??Small multilevel endplate osteophytes. ??No bony lesion. ??There is a slight S-shaped curvature of the thoracic spine. ??Heart appears enlarged. Procedure Note Teddy Fernández MD - 05/31/2024 Procedure: Radiographs of the thoracic spine. HISTORY: pain. COMPARISON: None. FINDINGS: Normal alignment. No compression deformity. Small multilevel endplateosteophytes. No bony lesion. There is a slight S-shaped curvature of thethoracic spine. Heart appears enlarged. IMPRESSION: Slight S-shaped curvature of the thoracic spine with mild endplatedegenerative changes. -------- FINAL REPORT -------- Dictated By: Teddy Fernández Dictated Date: 05/31/2024 12:07 ET Assigned Physician: Teddy Fernández Reviewed and Electronically Signed By: Teddy Fernández Signed Date: 05/31/2024 12:07 ET Workstation ID: [id number] Transcribed By: Self Edit Transcribed Date: 05/31/2024 12:07 ET Lesa DOUGHERTY IMG XR PROCEDURES Final Resul t * [id number], RSV, Influenza A and B qualitative RT-PCR (05/31/2024 11:03 AM EDT) Influenza A PCR Not Detected Not Detected LAB MICROBIOLOGY METHOD 05/31/2024 12:37 PM EDT [facility] Influenza B PCR Not Detected Not Detected LAB MICROBIOLOGY METHOD 05/31/2024 12:37 PM EDT [facility] RSV PCR Not Detected Not Detected LAB MICROBIOLOGY METHOD 05/31/2024 12:37 PM EDT [facility] SARS COV-2 Not Detected Not Detected LAB MICROBIOLOGY METHOD 05/31/2024 12:37 PM EDT [facility] Swab Both anterior nares / Unknown Non-blood Collection / Unknown 05/31/2024 11:03 AM EDT 05/31/2024 11:47 AM EDT Narrative [facility] - 05/31/2024 12:37 PM EDT Disclaimer: ??Testing was performed using the [employer] GeneXpert Xpress SARS-CoV-2 _Flu_RSV PLUS PCR assay. ??The manner in which this information is used to guide patient care is the responsibility of the healthcare provider. ??Results should be correlated with the clinical history, epidemiological data, and other data available to the clinician evaluating the patient. ??Negative results do not preclude infection. ??This test has been authorized by the FDA under an Emergency Use Authorization (EUA). ??This test is only authorized for the duration of time the declaration that circumstances exist justifying the authorization of the emergency use of in vitro diagnostic tests for detection of SARS-CoV-2 virus and/or diagnosis of COVID-19 infection under section 564 (b) (1) of the Act, 21 U.S.C 360bbb-3 (b) (1), unless the authorization is terminated or revoked sooner. ?? Reference Range: Not Detected Fact sheet for Healthcare providers can be found at https://www.fda.gov/media/775642/download. ?? Fact sheet for Healthcare patients can be found at https://www.fda.gov/media/005610/download. Lesa DOUGHERTY LAB MICROBIOLOGY - GENERAL OR DERABLES Final Result [facility] [address] [place] [address], * Depression Screening (11/28/2023) Pathologist [facility] Depression Screening abstracted Historical Provider HEALTH MAINTENANCE Final Result * (ABNORMAL) Lipid panel (06/09/2022) Pathologist [facility] LDL/HDL Ratio 6(A) 0 - 4 Triglycerides 337(A) 0 - 150 mg/dL Cholesterol 239(A) 0 - 200 mg/dL HDL 43 >=40 mg/dL LDL Cholesterol 129(A) 0 - 100 mg/dL Blood Venous blood specimen / Unknown [facility] Provider LAB BLOOD ORDERABLES Deanna l Result * Colonoscopy (05/02/2020) Pathologist [facility] Colonoscopy no interpretation , abstracted Anatomical Region Laterality Modality Other [facility] Provider HEALTH MAINTENANCE Final Result * Cervical Cancer Screening: HPV (04/09/2020) Pathologist [facility] Cervical Cancer Screening: HPV negative, abstracted [facility] Provider HEALTH MAINTENANCE Final Result * Hepatitis C Screening (02/24/2018) [facility] Hepatitis C Screening abstracted [facility] Provider HEALTH MAINTENANCE Final Result from Last 3 Months or Most Recently Relevant to Health Maintenance Additional Health Concerns Infection Onset Date Last Indicated Streptococcus Group A 06/11/2024 06/11/[address] [place] [id number] [facility] Care Teams Vice President Safety Relationship Specialty Start Date End Date Lor Deshpande MD [address] [place] [id number] PCP - General Internal Medicine 03/11/24
== END 2024-07-14 10:17 | disposition home or self-care (01) ==
LOC: HO.MAMMO 10:16
PROVIDERS: Visit Provider Internal Medicine
DX: Z12.31 Encounter for screening mammogram for malignant neoplasm of breast (principal)
CPT/HCPCS: 77063; 77067

== ENCOUNTER → 2024-07-14 10:30 | Outpatient (BNV) | payer OTHER, SELFPAY | PROVIDERS: Visit Provider Internal Medicine | DX: Z12.31 Encounter for screening mammogram for malignant neoplasm of breast (principal) | CPT/HCPCS: 77063; 77067 ==